=== PATIENT | female | born 1980 | race Two or more races ===

== ENCOUNTER 2025-08-01 00:12 | Emergency (ER) | payer MEDICAID ==
[~2025-08-01] VITALS: Ht 165.1 cm; Wt 64.0 kg
[2025-08-01 00:15] VITALS: O2SAT 97
[2025-08-01 01:02] LABS: BASOPHILS % 0.7 % (0.0-2.0); EOSINOPHILS % 2.8 % (0.0-5.0); HEMATOCRIT. 33.0 % (36.0-48.0); HEMOGLOBIN. 10.8 g/dL (12.0-16.0); LYMPHOCYTES % 25.8 % (20.0-50.0); MEAN PLATELET VOLUME 7.4 fl (7.4-10.4); MONOCYTES % 4.9 % (2.0-8.0); NEUTROPHILS % 65.8 % (40.0-76.0); PLATELET 257 x1000/uL (130-400); RED BLOOD CELL COUNT 4.38 mill/uL (4.2-5.4); RED CELL DISTRIBUTION WIDTH 16.1 % (11.6-14.6)
[2025-08-01 02:07] LABS: CREATININE 0.6 mg/dL (0.6-1.0); UREA NITROGEN BLOOD 8 mg/dL (9-23)
[2025-08-01 02:53] VITALS: O2SAT 98
[2025-08-01 03:14] LABS: HCG SCREEN NEGATIVE
[2025-08-01 04:28] VITALS: RESP 18
[2025-08-01 05:16] VITALS: BP 100/65; PULSE 85; TEMP 36.9
== END 2025-08-01 05:18 | disposition home or self-care (01) ==
LOC: ER 00:12
DX: F10.129 Alcohol abuse with intoxication, unspecified (principal); Y90.9 Presence of alcohol in blood, level not specified
CPT/HCPCS: 36415; 80048; 84703; 85025; 99283